=== PATIENT | female | born 1965 | race Two or more races ===

== ENCOUNTER 2017-01-27 23:28 | Emergency (ER) | payer OTHER ==
[2017-01-28 00:23] LABS: Basophils # (auto) 0 uL; Basophils % (auto) 0.2 % (0.0-2.0); Eosinophils # (auto) 0.1 uL; Hematocrit 35.6 % (36.0-46.0); Hemoglobin 11.9 g/dL (12.2-16.2); Lymphocytes # (auto) 1.8 uL; Lymphocytes % (auto) 22.3 % (10.0-50.0); Mean Corpuscular Hemoglobin 29.1 pg (28.0-32.0); Mean Corpuscular Hgb Conc. 33.4 g/dL (32.0-36.0); Mean Corpuscular Volume 87.1 fL (80.0-100.0); Monocytes # (auto) 0.6 uL; Monocytes % (auto) 7.2 % (0.0-12.0); Neutrophils # (auto) 5.5 uL; Neutrophils % (auto) 69.3 % (37.0-80.0); Platelet Count (auto) 242 10^3/uL (140-450); Red Cell Distribution Width 11.8 % (11.6-16.0)
[2017-01-28 00:37] LABS: Albumin 3.2 g/dL (3.4-5.0); Anion Gap 10 (5-15); Aspartate Aminotransferase 16 U/L (15-37); BUN/Creatinine Ratio 20.3; Blood Urea Nitrogen 15 mg/dL (7-18); Calcium 9.4 mg/dL (8.5-10.1); Carbon Dioxide 26 mmol/L (21-32); Chloride 106 mmol/L (98-107); GFR African American 106 mL/min; GFR Non-African American 88 mL/min; Glucose 134 mg/dL (74-106); INR 0.95 (0.9-1.15); Partial Thromboplastin Time 22.9 sec (22.64-33.71); Potassium 3.9 mmol/L (3.5-5.1); Prothrombin Time 10.3 sec (9.37-12.3); Sodium 142 mmol/L (136-145)
[2017-01-28 00:42] LABS: Alkaline Phosphatase 76 U/L (45-117); Bilirubin, Total 0.6 mg/dL (0.2-1.0); Total Protein 6.7 g/dL (6.4-8.2)
[2017-01-28] MEDS ORDERED: SODIUM CHLORIDE 0.9% 1,000 ML IV ONE (00:45)
[2017-01-28 00:47] LABS: B-Type Natriuretic Peptide 24.68 pg/mL (0-100)
[2017-01-28 00:48] LABS: Temperature: 22.1 C (20.0-25.0)
[2017-01-28] MEDS ORDERED: ACETAMINOPHEN 325 MG TAB PO ONE (03:00)
[2017-01-28] MEDS ORDERED: ONDANSETRON HCL 4 MG/2 ML VIAL ONE (03:32)
[2017-01-28] MEDS ORDERED: ONDANSETRON HCL 4 MG/2 ML VIAL IV ONE (03:45)
[2017-01-28] MEDS ORDERED: MORPHINE SULFATE 4 MG/ML SYRG IV ONE (03:45)
[2017-01-28 07:14] VITALS: BP 143/89
== END 2017-01-28 07:23 | disposition short-term general hospital (02) ==
LOC: ER 23:28 → EDBD 23:28 → ER 01-28 07:21
DX: R41.82 Altered mental status, unspecified (principal); R55 Syncope and collapse; R53.1 Weakness; I10 Essential (primary) hypertension
CPT/HCPCS: 36415; 70450; 71010; 80053; 80329; 83880; 84484; 85025; 85610; 85730; 86850; 86900; 86901; 93005; 96361; 96374; 96375; 99285; J2270; J2405; J7030

== ENCOUNTER 2018-03-29 20:57 | Emergency (ER) | payer OTHER ==
[~2018-03-29] VITALS: Ht 165.1 cm; Wt 90.7 kg
[2018-03-29 21:54] LABS: Basophils # (auto) 0 uL; Basophils % (auto) 0.2 % (0.0-2.0); Eosinophils # (auto) 0 uL; Eosinophils % (auto) 0.1 % (0.0-7.0); Hematocrit 41.5 % (36.0-46.0); Hemoglobin 14.3 g/dL (12.2-16.2); Lymphocytes # (auto) 0.7 uL; Lymphocytes % (auto) 5.3 % (10.0-50.0); Mean Corpuscular Hemoglobin 29.7 pg (28.0-32.0); Mean Corpuscular Hgb Conc. 34.4 g/dL (32.0-36.0); Mean Corpuscular Volume 86.4 fL (80.0-100.0); Monocytes # (auto) 0.7 uL; Monocytes % (auto) 5.4 % (0.0-12.0); Neutrophils # (auto) 11.1 uL; Platelet Count (auto) 240 10^3/uL (140-450); Red Cell Distribution Width 12.6 % (11.8-14.3); White Blood Cell 12.5 10^3/uL (4.4-10.8)
[2018-03-29 22:09] LABS: INR 0.94 (0.9-1.15); Prothrombin Time 10.1 sec (9.27-12.13)
[2018-03-29] MEDS ORDERED: LORazepam 0.5 MG TAB PO ONE (22:15)
[2018-03-29 22:16] LABS: Albumin 3.8 g/dL (3.4-5.0); BUN/Creatinine Ratio 19.3; Calcium 9.9 mg/dL (8.5-10.1)
[2018-03-29 22:21] LABS: Bilirubin, Total 0.9 mg/dL (0.2-1.0); Total Protein 7.6 g/dL (6.4-8.2)
[2018-03-29 22:25] LABS: Potassium 2.9 mmol/L (3.5-5.1)
[2018-03-29 22:32] LABS: Urine Bacteria FEW /hpf (None Seen); Urine Blood Negative /uL (Negative); Urine Specific Gravity 1.015 (1.001-1.035); Urine WBC 7 /hpf (0 - 5)
[2018-03-29 22:41] LABS: Alcohol, Urine < 3.0 mg/dL (0-5); Amphetamine Screen, Urine NEGATIVE (NEGATIVE); Benzodiazephine Screen, Urine NEGATIVE (NEGATIVE); Cannabinoid Screen, Urine NEGATIVE (NEGATIVE); Cocaine Screen, Urine NEGATIVE (NEGATIVE); Opiate Scree,Urine NEGATIVE (NEGATIVE); Phencyclidine Screen, Urine NEGATIVE (NEGATIVE)
[2018-03-29] MEDS ORDERED: POTASSIUM CHL 20 Meq TABLET PO ONE (22:45)
[2018-03-29 22:46] LABS: Barbiturate Scree,Urine NEGATIVE (NEGATIVE)
[2018-03-30] MEDS ORDERED: POTASSIUM CHL 20 Meq TABLET PO ONE (03:00)
[2018-03-30] MEDS ORDERED: HYDROcodone-ACET 10/325MG TAB PO ONE (03:15)
[2018-03-30] MEDS ORDERED: cefTRIAXone 1GM/10ml IVPUSH 10 ML IV ONE (03:30)
[2018-03-30 05:42] VITALS: BP 107/61
== END 2018-03-30 04:47 | disposition home or self-care (01) ==
LOC: EDBD 20:57 → ER 21:05
DX: J06.9 Acute upper respiratory infection, unspecified (principal); R51 Headache; J02.9 Acute pharyngitis, unspecified; E86.0 Dehydration; F41.9 Anxiety disorder, unspecified; I10 Essential (primary) hypertension
CPT/HCPCS: 36415; 70450; 71045; 80053; 80307; 81001; 81025; 84484; 85025; 85610; 85730; 87880; 94761; 96374

== ENCOUNTER 2025-07-26 08:08 | Emergency (ER) | payer BC, OTHER ==
[~2025-07-26] VITALS: Ht 160 cm; Wt 83.9 kg
[2025-07-26 08:51] LABS: Hematocrit 38.5 % (36.0-46.0); Hemoglobin 13.3 g/dL (12.2-16.2); Mean Corpuscular Hemoglobin 31.3 pg (28.0-32.0); Mean Corpuscular Volume 90.4 fL (80.0-100.0); Nucleated Red Blood Cells % 0.2 %
[2025-07-26 09:13] LABS: Alkaline Phosphatase 112 U/L (46-116); Anion Gap 10 (5-15); BUN/Creatinine Ratio 9.9 (10.0-20.0); Carbon Dioxide 27 mmol/L (20-31); Chloride 101 mmol/L (98-107); Potassium 3.8 mmol/L (3.5-5.1); Sodium 138 mmol/L (136-145); Total Protein 8.1 g/dL (5.7-8.2)
[2025-07-26 09:14] LABS: Alanine Aminotransferase 41 U/L (7-40); Albumin 5.0 g/dL (3.2-4.8); Bilirubin, Total 0.6 mg/dL (0.2-1.0); Blood Urea Nitrogen 9 mg/dL (9-23); Calcium 11.1 mg/dL (8.7-10.4); Glucose 164 mg/dL (74-106)
[2025-07-26] MEDS: SODIUM CHLORIDE 0.9% 250 ML IV ONE (09:15)
[2025-07-26] MEDS ORDERED: SODIUM CHLORIDE 0.9% 250 ML IV ONE (09:15)
[2025-07-26 09:46] VITALS: PULSE 86; RESP 26; O2SAT 96
--- NOTE | 2025-07-26 09:53 | ED.PDOC ---
History of Present Illness HPI Comments This is a 60-year old female with past medical history of non insulin dependent diabetes mellitus, hypertension and breast cancer s/p bilateral mastectomy and right lumpectomy with mets to lung (1-2 months back) for which she was taking treatment at [facility], on anastrazole currently who came in to the ED with the chief complaint of worsening flulike symptoms and uncontrolled hypertension. She started having a cough productive of brownish to greenish sputum with a headache. She states that headache got worse last night and she started having full body aches along with nausea, which is why she came to the hospital. Patient had vasovagal syncope after blood draw, all vitals were stable and she was given a 250 ml bolus of NS. We will give her 1gm rocephin but will hold on to second antibiotic for now dues to her ongoing chemo-radiation. 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: Other (breast cancer s/p bilateral mastectomy) Family History Family History: Unknown Social History Smoker: Non-Smoker Alcohol: Denies ETOH Use Drugs: Denies Drug Use Lives In: Home Constitutional: reports: fatigue, fever, malaise, weakness; denies: chills, diaphoresis, sweats, others EENTM: reports: throat pain; denies: blurred vision, double vision, ear bleeding, ear discharge, ear drainage, ear pain, ear ringing, eye pain, eye redness, hearing loss, mouth pain, mouth swelling, nasal discharge, nose bleeding, nose congestion, nose pain, photophobia, tearing, throat swelling, voice changes, others Respiratory: reports: cough; denies: hemoptysis, orthopnea, SOB at rest, shortness of breath, SOB with excertion, stridor, wheezing, others Cardiovascular: denies: chest pain, dizzy spells, diaphoresis, Dyspnea on exertion, edema, irregular heart beat, left arm pain, lightheadedness, palpitations, PND, syncope, others Gastrointestinal: denies: abdomen distended, abdominal pain, blood streaked bowels, constipated, diarrhea, dysphagia, difficulty swallowing, hematemesis, melena, nausea, poor appetite, poor fluid intake, rectal bleeding, rectal pain, vomiting, others Genitourinary: denies: abnormal vagina bleeding, burning, dyspareunia, dysuria, flank pain, frequency, hematuria, incontinence, pain, , vagina discharge, urgency, others Neurological: reports: headache; denies: dizziness, fainting, left sided numbness, left sided weakness, numbness, paresthesia, pre-existing deficit, right sided numbness, right sided weakness, seizure, speech problems, tingling, tremors, weakness, others Musculoskeletal: denies: back pain, gout, joint pain, joint swelling, muscle pain, muscle stiffness, neck pain, others Integumetry: denies: bruises, change in color, change in hair/nails, dryness, laceration, lesions, lumps, rash, wounds, others Allergic/Immunocompromised: denies: Difficulty Healing, Frequent Infections, Hives, Itching, others Hematologic/Lymphatic: denies: anemia, blood clots, easy bleeding, easy bruising, swollen glands, others Endocrine: denies: excessive hunger, excessive sweating, excessive thirst, excessive urination, flushing, intolerance to cold, intolerance to heat, unexplained weight gain, unexplained weight loss, others Psychiatric: denies: anxiety, bipolar disorder, depression, hopeless, panic disorder, schizophrenia, sleepless, suicidal, others Physical Exam General Appearance: Normal HEENT: Normal ENT Inspection Neck: Non-Tender, Normal Inspection Respiratory: Chest Non-Tender, Lungs Clear, No Respiratory Distress, Normal Breath Sounds Cardiovascular: No Edema, No Murmur Breast Exam: Other (bilateral mastectomy) Gastrointestinal: No Organomegaly, Non Tender, No Pulsatile Mass, Normal Bowel Sounds Genitalia: Deferred Pelvic: Deferred Rectal: Deferred Extremities: Normal capillary refill, Normal inspection, Normal range of motion, Non-tender, No pedal edema Neurologic: No Motor Deficits, Normal Affect, Normal Mood, No Sensory Deficits Cerebellar Function: Normal Reflexes: Normal Skin: Normal Color Lymphatic: No Adenopathy Was a procedure done? Was a procedure done?: No Differential Dx Considerations may include: sepsis ,covid, influenza, pneumonia X-Ray, Labs, Meds, VS Vital Signs Date Time Temp Pulse Resp B/P (MAP) Pulse Ox O2 Delivery O2 Flow Rate FiO2 07/26/25 08:11 101.4 106 22 176/102 96 101.4 Lab Test 07/26/25 08:34 Range/Units White Blood Count 3.1 L 4.4-10.8 10^3/uL Red Blood Count 4.26 4.0-5.20 10^6/uL Hemoglobin 13.3 12.2-16.2 g/dL Hematocrit 38.5 36.0-46.0 % Mean Corpuscular Volume 90.4 80.0-100.0 fL Mean Corpuscular Hemoglobin 31.3 28.0-32.0 pg Mean Corpuscular Hemoglobin Concent 34.6 32.0-36.0 g/dL Red Cell Distribution Width 14.7 H 11.8-14.3 % Platelet Count 276 140-450 10^3/uL Mean Platelet Volume 7.2 6.9-10.8 fL Neutrophils (%) (Auto) 60.8 37.0-80.0 % Lymphocytes (%) (Auto) 25.5 10.0-50.0 % Monocytes (%) (Auto) 12.0 0.0-12.0 % Eosinophils (%) (Auto) 1.1 0.0-7.0 % Basophils (%) (Auto) 0.6 0.0-2.0 % Neutrophils # (Auto) 1.9 1.6-8.6 10 ^3/uL Lymphocytes # (Auto) 0.8 0.4-5.4 10 ^3/uL Monocytes # (Auto) 0.4 0-1.3 10 ^3/uL Eosinophils # (Auto) 0 0-0.8 10 ^3/uL Basophils # (Auto) 0 0-0.2 10 ^3/uL Nucleated Red Blood Cells 0.2 % Sodium Level 138 136-145 mmol/L Potassium Level 3.8 3.5-5.1 mmol/L Chloride Level 101 98-107 mmol/L Carbon Dioxide Level 27 20-31 mmol/L Anion Gap 10 5-15 Blood Urea Nitrogen 9 9-23 mg/dL Creatinine 0.91 0.550-1.02 mg/dL Glomerular Filtration Rate Calc 72 >90 mL/min BUN/Creatinine Ratio 9.9 L 10.0-20.0 Serum Glucose 164 H 74-106 mg/dL Lactic Acid Level 2.0 0.4-2.0 mmol/L Calcium Level 11.1 H 8.7-10.4 mg/dL Total Bilirubin 0.6 0.2-1.0 mg/dL Aspartate Amino Transferase (AST) 33 13-40 U/L Alanine Aminotransferase (ALT) 41 H 7-40 U/L Alkaline Phosphatase 112 46-116 U/L Total Protein 8.1 5.7-8.2 g/dL Albumin 5.0 H 3.2-4.8 g/dL Time of 1ST Reevaluation: 09:30 Reevaluation 1ST: Improved Patient Education/Counseling: Diagnosis, Treatment, Prognosis Family Education/Counseling: Diagnosis, Treatment, Prognosis SEPSIS Sepsis Screen Date sepsis recognized/suspect: Jul 26, 2025 Time Sepsis recognized/suspect: 814 Recent Procedure: No On Antibiotic Therapy: No Respiratory Rate >20: Yes Heart Rate >90: Yes Temp<36 C (96.8 F) or >38.3 C: Yes SBP <90 or MAP <65 mmHG: No New Acute Mental Status Change: No Is the patient on CPAP, BIPAP,: No Physician Orders Blood Culture (07/26/25 08:17) Urinalysis (07/26/25 08:17) Sodium Chloride 0.9% (07/26/25 09:15) Chest Xray 1 View (07/26/25 09:14) Ceftriaxone 1gm/50ml (Rocephin) (07/26/25 09:30) Vital Signs Date Time Temp Pulse Resp B/P (MAP) Pulse Ox O2 Delivery O2 Flow Rate FiO2 07/26/25 08:11 101.4 106 22 176/102 96 101.4 Laboratory Tests Test 07/26/25 08:34 Lactic Acid Level 2.0 mmol/L (0.4-2.0) White Blood Count 3.1 10^3/uL (4.4-10.8) L Departure 1 Departure Time of Disposition: Impression: Primary Impression: Sepsis Additional Impressions: COVID Influenza Pneumonia Syncope and collapse Disposition: 30 STILL A PATIENT Condition: Fair Critical Care Note Critical Care Time?: No Stability Stability form required: No MIO ZHENG RESIDENT Jul 26, 2025 09:53
--- NOTE | 2025-07-26 09:56 | DVH ---
CHEST RADIOGRAPH INDICATION: pneumonia TECHNIQUE: Single frontal view of the chest was obtained COMPARISON: None FINDINGS: Lines and Tubes: None Lungs: No focal consolidation. Pleura: No effusion. No pneumothorax. Cardiomediastinal contours: Unremarkable Bones: No acute osseous abnormality. IMPRESSION: 1. No acute cardiopulmonary disease.
[2025-07-26] MEDS ORDERED: ACETAMINOPHEN 325 MG TAB PO PRN (10:00)
[2025-07-26] MEDS: ACETAMINOPHEN 325 MG TAB PO ONE (10:20)
[2025-07-26] MEDS: ONDANSETRON HCL 4 MG/2 ML VIAL IV ONE (10:20)
[2025-07-26] MEDS: hydroCHLOROthiazide 25 MG TAB PO SCH (10:56)
[2025-07-26] MEDS: SODIUM CHLORIDE 0.9% 1,000 ML IV ONE (11:40)
[2025-07-26] MEDS: KETOROLAC TROMETH 30 MG/ML 1ML VIAL IV ONE (11:40)
--- NOTE | 2025-07-26 11:42 | DVH ---
CLINICAL HISTORY: DVT R/O BILATERAL TECHNIQUE: Color and duplex doppler imaging of the bilateral lower extremity veins was performed. Vessel compression if possible was also performed. WID: COMPARISON: None FINDINGS: Right and left external iliac veins: Normal flow and phasicity. Right Lower Extremity: Right common femoral vein: Normal compressibility and flow. Right femoral vein: Normal compressibility and flow. Right popliteal vein: Normal compressibility and flow. Left Lower Extremity: Left common femoral vein: Normal compressibility and flow. Left femoral vein: Normal compressibility and flow. Left popliteal vein: Normal compressibility and flow. IMPRESSION: 1. NO SONOGRAPHIC EVIDENCE FOR DEEP VENOUS THROMBOSIS IN THE BILATERAL LOWER EXTREMITY VEINS.
[2025-07-26 11:45] VITALS: PULSE 97; RESP 18; O2SAT 95
[2025-07-26 12:20] LABS: COVID19 ANTIGEN SOFIA FIA NEGATIVE (NEGATIVE)
[2025-07-26] MEDS: guaiFENesin-DM 100/10mg/5ml SYR PO PRN (13:28)
[2025-07-26 15:19] LABS: Urine Protein, UAD Negative (Negative)
[2025-07-26] MEDS ORDERED: AUG875T PO (15:51)
[2025-07-26] MEDS ORDERED: [UNRECOGNIZED DRUG - CODE] PO (15:54)
[2025-07-26 16:28] VITALS: BP 130/74; PULSE 73; RESP 18; TEMP 98.8; O2SAT 99
--- NOTE | 2025-07-26 16:51 | DVHDS2 ---
Discharge Summary Date of Admission Date of Discharge: Jul 26, 2025 Labs/Diagnostic Data: Laboratory Results Test 07/26/25 14:54 07/26/25 11:24 07/26/25 08:34 Urine Color Light-yellow (Yellow) Urine Clarity Clear (Clear) Urine pH 5.5 (5.0-9.0) Urine Specific [place] 1.009 (1.001-1.035) Urine Protein Negative (Negative) Urine Ketones Negative (Negative) Urine Blood Negative /uL (Negative) Urine Nitrite Negative (Negative) Urine Bilirubin Negative (Negative) Urine Urobilinogen Normal mg/dL (Negative) Urine Leukocyte Esterase Negative /uL (Negative) Urine RBC 1 /hpf (0 - 4) Urine Microscopic WBC < 1 /HPF (0-5) Urine Squamous Epithelial Cells Few /hpf (<5) Urine Bacteria None seen /hpf (None Seen) Urine Glucose Normal mg/dL (Normal) Influenza Type A Antigen Negative (Negative) Influenza Type B Antigen Negative (Negative) SARS-CoV-2 Antigen (Rapid) Negative (NEGATIVE) White Blood Count 3.1 10^3/uL (4.4-10.8) Red Blood Count 4.26 10^6/uL (4.0-5.20) Hemoglobin 13.3 g/dL (12.2-16.2) Hematocrit 38.5 % (36.0-46.0) Mean Corpuscular Volume 90.4 fL (80.0-100.0) Mean Corpuscular Hemoglobin 31.3 pg (28.0-32.0) Mean Corpuscular Hemoglobin Concent 34.6 g/dL (32.0-36.0) Red Cell Distribution Width 14.7 % (11.8-14.3) Platelet Count 276 10^3/uL (140-450) Mean Platelet Volume 7.2 fL (6.9-10.8) Neutrophils (%) (Auto) 60.8 % (37.0-80.0) Lymphocytes (%) (Auto) 25.5 % (10.0-50.0) Monocytes (%) (Auto) 12.0 % (0.0-12.0) Eosinophils (%) (Auto) 1.1 % (0.0-7.0) Basophils (%) (Auto) 0.6 % (0.0-2.0) Neutrophils # (Auto) 1.9 10 ^3/uL (1.6-8.6) Lymphocytes # (Auto) 0.8 10 ^3/uL (0.4-5.4) Monocytes # (Auto) 0.4 10 ^3/uL (0-1.3) Eosinophils # (Auto) 0 10 ^3/uL (0-0.8) Basophils # (Auto) 0 10 ^3/uL (0-0.2) Nucleated Red Blood Cells 0.2 % Sodium Level 138 mmol/L (136-145) Potassium Level 3.8 mmol/L (3.5-5.1) Chloride Level 101 mmol/L (98-107) Carbon Dioxide Level 27 mmol/L (20-31) Anion Gap 10 (5-15) Blood Urea Nitrogen 9 mg/dL (9-23) Creatinine 0.91 mg/dL (0.550-1.02) Glomerular Filtration Rate Calc 72 mL/min (>90) BUN/Creatinine Ratio 9.9 (10.0-20.0) Serum Glucose 164 mg/dL (74-106) Lactic Acid Level 2.0 mmol/L (0.4-2.0) Calcium Level 11.1 mg/dL (8.7-10.4) Total Bilirubin 0.6 mg/dL (0.2-1.0) Aspartate Amino Transferase (AST) 33 U/L (13-40) Alanine Aminotransferase (ALT) 41 U/L (7-40) Alkaline Phosphatase 112 U/L (46-116) Total Protein 8.1 g/dL (5.7-8.2) Albumin 5.0 g/dL (3.2-4.8) Other Laboratory Tests 07/26/25 08:34 Brief Hx & Hospital Course: Patient is a 60-year-old female with past medical history of type 2 diabetes, hypertension, breast cancer currently on hormone therapy with recent mets to the lungs currently receiving treatment at [facility] who presented with complaints of flulike symptoms, productive cough with green sputum for the past 5 days. Patient states her had a similar illness that began on 07/21. She subsequently started to experience similar symptoms. Patient presented to the ER with vitals notable for temperature of 101.4, heart rate of 106 respiratory rate of 22. CBC did not reveal any leukocytosis. BMP was within normal limits. Patient was given Tylenol followed by Toradol which subsequently broke her fever. Flu and COVID was done which was negative. Chest x-ray was done which did not reveal any acute cardiopulmonary disease. Lower extremity venous ultrasound was done which was negative for DVT. Patient was treated with ceftriaxone in the ER. She was given a total of 1.250 liters of NS. Patient was started on a diet. She was monitored for several hours and noted to have improvement in her weakness. Vitals prior to discharge were noted to be within normal limits without any signs of fever, tachycardia or hypertension. Patient was discharged on Augmentin for 7 days for upper respiratory infection. She is to follow-up with her primary care physician. Patient given ER return precautions. She was noted to ambulate independently multiple times to the bathroom without issue per the nurse. [facility] case management arrange follow- up appointments. Condition at Discharge: Good Final Diagnosis/Problems List Upper Respiratory Infection Secondary Diagnosis: Breast Cancer Stage 4 Hypertension Discharge Disposition: Home Discharge Instruct/Medications Diet: Regular Activity: No Restrictions, As Tolerated Medications: Augmentin x7 days Robatussin with Mucinex for cough and congestion Take over the counter NSAIDS or Tylenol for fever Flu and COVID negative. Urine negative for infection. Scheduled Amoxicillin & Pot Clavulanate (Augmentin Tablet), 875 MG PO BID Scheduled PRN Guaifenesin (Robafen Mucus/Chest Conge), 200 MG PO Q6HP PRN Discharge Statement: "Patient was advised to return to the ER or call 911 if any headaches, dizziness, shortness of breath, chest pain, abdominal pain, bleeding, fevers, or worsening of medical condition. Patient was counseled about treatment plan, medications, possible side effects, patientverbalized understanding. All questions were answered to the best of my ability. This discharge took greater then 30 minutes in planning, reviewing documentation, counseling the patient, and discussing with other team members." ASSESSMENT ASSESSMENT Assessment Upper Respiratory Infection DELIA RIBEIRO DO Jul 26, 2025 16:51
== END 2025-07-26 16:35 | disposition home or self-care (01) ==
LOC: ER 08:08
DX: A41.89 Other specified sepsis (principal); U07.1 COVID-19; J11.1 Influenza due to unidentified influenza virus with other respiratory manifestations; J18.9 Pneumonia, unspecified organism; R55 Syncope and collapse; E11.9 Type 2 diabetes mellitus without complications; I10 Essential (primary) hypertension; Z79.899 Other long term (current) drug therapy; Z20.822 Contact with and (suspected) exposure to COVID-19
CPT/HCPCS: 36415; 71045; 80053; 81001; 83605; 85025; 87040; 87426; 87804; 93970; 96361; 96365; 96375; 99285; J0696; J1885; J2405; J7030; J7050